=== PATIENT | male | born 1950 | race Caucasian/White ===

== ENCOUNTER → 2019-01-18 13:22 | Outpatient (CLI) | payer MEDICARE, SELFPAY ==
--- NOTE | 2019-01-18 13:27 | STEWCON_ITS ---
Reason For Study: Chest Pain; CHAPMAN Stress Results Protocol: Ernst Protocol Maximum Predicted HR: 151 bpm Target HR: 128 bpm % Maximum Predicted HR: 88 % Heart Stage Duration Rate BP Comment (mm:ss) (bpm) No Chest Pain; Technically Difficult Study; 4 ML Diluted Baseline 64 128/86Definity Given Ernst Protocol Stage I 3:00 101 138/72No Chest Pain Ernst Protocol Stage II 3:00 114 148/74No Chest Pain; Mild Dyspnea Ernst Protocol Stage III 3:00 133 178/78No Chest Pain; Mild to Moderate Dyspnea Recovery 75 138/84No Chest Pain Stress Duration: 9:00 mm:ss Maximum Stress HR: 133 bpm METS: 10 Baseline Echocardiogram Findings Stress Echo Wall motion Data Resting WM Intermediate WM Stress WM Resting Wall Motion Wall Motion Stress No regional wall motion No regional wall motion abnormalities noted. abnormalities noted. Ejection Fraction 55 %. Ejection Fraction 65 %. Interpretation Summary Exercise stress echo. 68-year-old man with a history of chest pain. Stress protocol: Resting EKG demonstrates normal sinus rhythm with a rate of 64 bpm normal intervals are noted resting blood pressures 128/80 6 m of mercury. The patient exercised according to regular Ernst protocol for total duration of 9 minutes patient completed stage III of the Ernst protocol. The maximum heart rate attained was 134 bpm which was 88% of maximum predicted heart rate the maximum workload was 10.1 metabolic equivalents. The patient maintained sinus rhythm throughout the recording. At rest there were no ST or T wave changes noted suggest ischemia. The resting blood pressures 128/86 peak blood pressure 178/78 mmHg. Stress echocardiographic images. Resting echocardiographic images performed with Definity demonstrated an ejection fraction of approximately 55%. The patient exercised according to the Ernst protocol at peak exercise stress echocardiographic images were obtained with a peak of 65% and no wall motion abnormalities noted. Conclusion: Exercise stress echocardiogram with no evidence of ischemia at a high workload. Excellent functional capacity. No arrhythmias noted. Ordering Physician: Ignacio Unger III Referring Physician: Clifton Kyle Performed By: Chayito Painter, RDCS, RVT
== END ==
PROVIDERS: Family Provider Family Medicine; PCP Family Medicine; Referring Provider Family Medicine; Visit Provider Family Medicine
DX: R06.09 Other forms of dyspnea (principal)
CPT/HCPCS: 93017; 93350; Q9957; A4216; C8928

== ENCOUNTER 2020-10-09 12:18 | Outpatient (RCR) | payer MEDICARE, SELFPAY ==
[2016-08-22 18:13] VITALS: BMI 25.1
== END 2020-10-09 23:59 ==
LOC: IMMUN 12:18
PROVIDERS: PCP Family Medicine; Visit Provider Family Medicine
DX: Z23 Encounter for immunization (principal)
CPT/HCPCS: 0011A; 0012A

== ENCOUNTER 2022-06-07 13:18 | Emergency (ER) | payer MEDICARE, SELFPAY ==
[2022-06-07 13:19] VITALS: BP 145/99; PULSE 82; RESP 16; TEMP 36.4; O2SAT 98; BMI 26.6
--- NOTE | 2022-06-07 13:55 | EKG12_ITS ---
Test Reason : LIGHTHEADNESS Blood Pressure : / mmHG Vent. Rate : 068 BPM Atrial Rate : 068 BPM P-R Int : 168 ms QRS Dur : 078 ms QT Int : 400 ms P-R-T Axes : 057 -04 031 degrees QTc Int : 425 ms Normal sinus rhythm Normal ECG Confirmed by SOFÍA CHARLES, ANDREW ([id number]), technical writer and editor CARLOS RAINES ([id number]) on 06/08/2022 9:26:26 AM Referred By: Confirmed By:ANDREW GORE MD
--- NOTE | 2022-06-07 13:55 | RAD_ITS ---
STUDY: X-RAY - LEFT WRIST REASON FOR EXAM: Male, 72 years old. Fall -- with navicular view please TECHNIQUE: 4 view(s) of the wrist were obtained. COMPARISON: None. FINDINGS: Normal visualized distal radius and ulna. Tiny old avulsion fracture of the ulnar styloid. There is degenerative arthrosis of the radiocarpal articulation. Normal distal radioulnar articulation. Normal carpal bones. There is degenerative arthrosis of the carpal articulations. Normal carpometacarpal articulation of the thumb. Normal second through fifth carpometacarpal articulations. Normal visualized metacarpal bones. The soft tissue structures are unremarkable. RAD/Wrist min 3 Views IMPRESSION: Degenerative changes of the distal radial carpal joints and carpal joints. Electronically Signed: Dyllan Snell MD at 14:59 EDT ,
--- NOTE | 2022-06-07 13:56 | EX.ED.DYSGE1 ---
HPI History of Present Illness Chief Complaint: Fall Informant: patient Onset/Context/Timing Onset: Days (5 days) Narrative Narrative: Patient tripped and fell on Friday, 5 days ago. He states since that time he has felt lightheaded. He denies vertigo symptoms. He did not have any dizziness prior to his fall. He has a mild intermittent headache. He complains of some mild right-sided neck pain as well as left wrist pain. He is not on an anticoagulant. He did not lose consciousness. He called his PCPs office today for follow-up and was referred to the emergency room. [facility] Medical History Prostate cancer Home Medications Pyridoxine Hcl [Vitamin B-6] 100 mg PO DAILY 12/01/14 [History Last Taken Unknown] Thiamine Hcl [Vitamin B-1] 100 mg PO DAILY 12/01/14 [History Last Taken Unknown] coenzyme Q10 100 mg capsule (Co Q-10) 100 mg PO DAILY 12/01/14 [History Last Taken Unknown] glucosamine HCl 500 mg-msm 83 mg-chondroitin 400 mg tablet 1 ea PO DAILY 12/01/14 [History Last Taken Unknown] pantoprazole 40 mg tablet,delayed release 40 mg PO DAILY 12/01/14 [History Last Taken 12/12/14 y] vit C 250 mg-vit E 90 mg-zinc 40 mg-copper 1 km-yaxkrm-ffesqu capsule (PreserVision AREDS-2) 1 ea PO DAILY 12/01/14 [History Last Taken Unknown] celecoxib 50 mg capsule (Celebrex) mg PO 08/22/16 [History Last Taken Unknown] doxycycline hyclate 100 mg capsule 100 mg PO BID ##20 08/22/16 [Rx Last Taken Unknown] Allergy/AdvReac Type Severity Reaction Status Date / Time No Known Allergies Allergy Verified 06/07/22 13:21 Social History Smoking Status: Never smoker ROS ROS ED Constitutional Constitutional ED: Denies chills or fever(s) Eyes Eyes: Denies change in vision or discharge from eye(s) ENT ENT ED: Denies discharge from eye(s), rhinorrhea or sore throat Cardiovascular Cardiovascular: Denies chest pain or palpitations Respiratory/Chest Respiratory/Chest: Denies cough or dyspnea Gastrointestinal Gastrointestinal: Denies abdominal pain, diarrhea, nausea or vomiting Genitourinary Genitourinary ED: Denies dysuria Musculoskeletal Musculoskeletal: Reports arthralgias and neck pain Integumentary Denies Abrasions or rash Neurologic Neurologic: Reports headache(s); Denies weakness Psychiatric Psychiatric: Denies anxiety or depression Endocrine Endocrinology: Denies polydipsia or polyuria Allergic/Immunologic Allergic/Immunologic ED: Denies lip swelling or urticaria EXAM Physical Exam Const Vital Signs: 06/07/22 13:19 06/07/22 13:38 Temperature 97.5 F L Temperature Source Temporal Pulse Rate 82 Respiratory Rate 16 Respiratory Effort Normal Blood Pressure 145/99 H Blood Pressure Mean 114 Pulse Ox 98 Oxygen Delivery Method Room Air Positive well nourished and well developed General Appearance ED: well developed HEENT Reports normocephalic and head/scalp atraumatic Eyes PERRL and EOMs intact bilaterally Neck supple Chest Wall inspection of chest normal and palpation of chest normal Resp normal respiratory effort and clear to auscultation bilaterally Cardio regular rate and regular rhythm GI normal to inspection, nondistended, normoactive bowel sounds Palpation: soft Back/Spine no CVA tenderness Back/Spine Narrative: No reproducible tenderness in the cervical, thoracic, or lumbar spine. Extremity Extremity Narrative: Mild tenderness location left wrist with good range of motion. Neuro oriented x3 and no sensory deficits noted Sensorium / Orientation: alert Motor Exam: strength 5/5 throughout Psych mental status grossly normal Skin no rashes or lesions noted MDM MDM MDM Narrative Medical decision making narrative: EKG was obtained. CT scan of the head and C-spine ordered along with left Radiography Diagnostic Testing: Clinical Impression(s) from Imaging Studies Wrist X-Ray 06/07/22 13:55 IMPRESSION: Degenerative changes of the distal radial carpal joints and carpal joints. Electronically Signed: Dyllan Snell MD at 14:59 EDT , Brain CT 06/07/22 14:15 IMPRESSION: Normal unenhanced CT scan of the brain. Electronically Signed: Dyllan Snell MD at 14:31 EDT , Cervical Spine CT 06/07/22 14:15 IMPRESSION: Multilevel degenerative changes, as described above. Electronically Signed: Dyllan Snell MD at 14:30 EDT , EKG Initial EKG: Attestation: I personally reviewed and interpreted this EKG as follows: Interpretation: Sinus Rhythm (Sinus at 68 with no acute ischemia.) Treatment and Re-Evaluation Narrative: On repeat evaluation patient resting comfortably. CT scan of the head and C-spine revealed no acute abnormalities. Left wrist x-ray per my interpretation reveal significant arthritic changes with no acute fracture. Radiology interpretation is reviewed. EKG reveals no ischemia or arrhythmia. I do believe his symptoms are consistent with a mild concussion as this all started after he fell and struck his head. There is no evidence of bleeding or swelling. Instructions will be provided for home care as well as return. Discharge Plan Triage Chief Complaint: Fall ED Provider: Roxanne Goodson Dx/Rx/DC Orders Clinical Impression: Concussion Instructions: ED Concussion Prescriptions: No Action pantoprazole 40 MG tablet 40 mg PO DAILY Label Comments: decrease stomach acid coenzyme Q10 [Co Q-10] 100 MG capsule 100 mg PO DAILY Label Comments: supplement glucosamine GZr-kom-ikkwzwwrcq 1 EACH tablet 1 ea PO DAILY Label Comments: supplement vit C,A-Zr-oczqw-lutein-zeaxan [PreserVision AREDS-2] 1 EACH capsule 1 ea PO DAILY Label Comments: supplement Pyridoxine Hcl [Vitamin B-6] 100 MG tablet 100 mg PO DAILY Label Comments: supplement Thiamine Hcl [Vitamin B-1] 250 MG tablet 100 mg PO DAILY Label Comments: supplement celecoxib [Celebrex] 50 MG capsule PO doxycycline hyclate 100 MG capsule 100 mg PO BID Qty: 20 0RF Primary Care Provider: Tatum Perry Referrals: Tatum Perry MD [Primary Care Provider] - 1-2 Weeks Disposition Disposition: Home, Self Care
--- NOTE | 2022-06-07 14:15 | CT_ITS ---
STUDY: CT CERVICAL SPINE WITHOUT CONTRAST REASON FOR EXAM: Male, 72 years old. Neck pain following a fall. RADIATION DOSAGE (If Supplied By Facility): CTDIvol = ( 24.22 ) mGy, DLP = ( 515.57 ) mGycm TECHNIQUE: High resolution transaxial imaging was performed without contrast material. Sagittal and coronal images were reconstructed. Individualized dose optimization techniques were used for this CT. COMPARISON: None FINDINGS: Normal craniovertebral junction. There are degenerative changes of the anterior atlantoaxial articulation. Normal odontoid process. Normal cervical lordosis. Normal vertebral bodies and posterior osseous elements. C2-3: Moderate degree of disc space narrowing. Posterior spondylosis. Mild degree of central canal stenosis. C3-4: Marked degree of disc space narrowing. Moderate degree of bilateral neural foraminal stenosis worse on the left side and facet joint osteoarthritis. C4-5: Mild degree of disc space narrowing. Hypertrophy of the right facet joint. No significant stenosis seen. C5-6: Moderate degree of disc space narrowing. Mild degree of central canal stenosis due to the spondylolisthesis. C6-7: Marked degree of disc space narrowing. Bilateral neural foraminal stenosis worse on the left side. Mild degree of central canal stenosis. C7-T1: Normal endplates. Normal disc height and morphology. Normal central canal and intervertebral neuroforamina. Normal visualized soft tissue structures. CT/Spine Cervical without Contras IMPRESSION: Multilevel degenerative changes, as described above. Electronically Signed: Dyllan Snell MD at 14:30 EDT ,
--- NOTE | 2022-06-07 14:15 | CT_ITS ---
STUDY: CT BRAIN WITHOUT CONTRAST REASON FOR EXAM: Male, 72 years old. Fall, dizzy RADIATION DOSAGE (If Supplied By Facility): CTDIvol = ( 44.99 ) mGy, DLP = ( 812.98 ) mGycm TECHNIQUE: Transaxial CT imaging of the brain was performed without administration of intravenous contrast material. Individualized dose optimization techniques were used for this CT. COMPARISON: Comparison is made with prior study dated 2016. FINDINGS: Normal soft tissue structures. Normal calvarium. Normal size ventricles and extra-axial spaces for the patient''s age. Normal white matter tracts of the cerebral hemispheres. Normal basal ganglia and thalami. Normal brainstem. Normal cerebellum. There is no intracranial hemorrhage. There are no findings of an acute ischemic infarction. Normal visualized paranasal sinuses. Healed fracture with mild deformity of the left zygomatic arch. CT/Brain/Head without Contrast IMPRESSION: Normal unenhanced CT scan of the brain. Electronically Signed: Dyllan Snell MD at 14:31 EDT ,
[2022-06-07 15:23] VITALS: BP 144/81; PULSE 68; RESP 16; O2SAT 98
== END 2022-06-07 15:28 | disposition home or self-care (01) ==
PROVIDERS: Emergency Provider Emergency Medicine; PCP Internal Medicine; Visit Provider Emergency Medicine
DX: S06.0X0A Concussion without loss of consciousness, initial encounter (principal); W01.0XXA Fall on same level from slipping, tripping and stumbling without subsequent striking against object, initial encounter; Z85.46 Personal history of malignant neoplasm of prostate
CPT/HCPCS: 70450; 72125; 73110; 93005; 99282

== ENCOUNTER → 2022-08-06 | Outpatient (CLI) | payer MEDICARE, SELFPAY ==
--- NOTE | 2022-08-06 07:50 | CT_ITS ---
PROCEDURE: CT LEFT KNEE WITHOUT CONTRAST REASON FOR EXAM: Male, 72 years old. Preoperative planning for the [employer] Robotic knee surgery. Knee pain. TECHNIQUE: Transaxial CT of the hip, knee and ankle were obtained. Coronal and sagittal reconstruction images of the knee were provided. Individualized dose optimization techniques were used for this CT. COMPARISON: None. FINDINGS: Standard protocol for the preoperative planning for the M[employer] robotic knee surgery was performed. There is mild to moderate osteoarthrosis of the hip and knee. CT/Extremity Lower without Contra IMPRESSION: Preoperative Mako[employer] Robotic knee surgical CT evaluation with findings as described above. Electronically Signed: Will Holcomb, at 9:37 EST ,
== END | disposition home or self-care (01) ==
PROVIDERS: PCP Internal Medicine; Referring Provider Orthopaedic Surgery; Visit Provider Orthopaedic Surgery
DX: M17.12 Unilateral primary osteoarthritis, left knee (principal)
CPT/HCPCS: 73700

== ENCOUNTER 2022-08-26 16:02 | Observation (INO) | payer MEDICARE, SELFPAY ==
[2022-08-06 08:31] LABS: Hematocrit 43.6 % (40-54); Hemoglobin 15.2 g/dL (13.0-16.5); Mean Corp Hgb Conc 34.9 g/dL (32-36); Mean Corpuscular Hgb 32.2 pg (27.0-32.0); Mean Corpuscular Volume 92.4 fL (80-94); Mean Platelet Vol. 8.9 fl (6.2-12.0); Platelet Count 266 K/mm3 (150-450); RBC Distribution Width CV 11.9 % (11.6-14.6); RBC Distribution Width SD 40.9 fl (35.1-43.9); Red Blood Count 4.72 M/mm3 (4.6-6.2)
[2022-08-06 08:43] LABS: Albumin, Serum 4.1 g/dL (3.2-5.0); Anion Gap 5 (5-15); BUN 24 mg/dL (7-18); BUN/Creat Ratio 23.3 RATIO (10-20); Calcium,Total 9.3 mg/dL (8.5-10.1); Chloride 105 mmol/L (98-107); Creatinine, Serum 1.03 mg/dL (0.70-1.30); EST Glomerular Filtration Rate 75 mL/min (>60); Est Glom Filt Rate - Afr Amer 91 mL/min (>60); Glucose 113 mg/dL (74-106); Potassium 4.3 mmol/L (3.5-5.1); Sodium Level 139 mmol/L (136-145)
[2022-08-06 08:45] LABS: Magnesium 2.3 mg/dL (1.6-2.6)
[2022-08-06 08:52] LABS: Hemoglobin A1c 5.7 % (3.8-5.6)
[2022-08-26] VITALS (14 sets, daily range): BP systolic 106–149; BP diastolic 63–97; PULSE 69–88; RESP 14–18; TEMP 36.4–37; O2SAT 94–99; BMI 26.5
[2022-08-26] MEDS: Lactated Ringers 1,000 ML 15 ML IV (11:45)
[2022-08-26] MEDS: Acetaminophen 500 MG Tablet 1000 MG PO ×2 (12:06→19:48)
[2022-08-26] MEDS: Gabapentin 600 MG Tablet PO (12:07)
[2022-08-26 13:25] LABS: Bedside Glucose 88 mg/dL (74-106)
--- NOTE | 2022-08-26 13:30 | KNEE_PTH ---
PATIENT: COREEN HAM LOC: [facility] U#:[id number] AGE/SX: 72/M ROOM: [facility]314 RE08/26/[address]: Dr. Daljit Mcwilliams DO : 1950 BED: 1 DIS: 08/27/2022 SPEC #: [id number] RECD: 08/27/22 09:59 STATUS: JAIR REGlen #: [id number] SAMY: 08/26/22 13:[address]: Daljit Mcwilliams DEPT: SURGICAL PATHOLOGY RECD BY: Mary Lou Morton ENTERED: 08/27/22 10:34 SP TYPE: TOTAL KNEE OTHR DR: Tatum Perry MD Tissues: Knee, NOS Procedures: Decalcification bone/plaque Surgery Specimen Level IV HEADER OPERATION: ERAS, total knee replacement robotic arm assist PRE-OP DIAGNOSIS: Osteoarthritis TISSUE SUBMITTED: Left knee bone MICROSCOPIC DIAGNOSIS Bone of left knee, total knee resection: Severe degenerative joint disease. AM:romario 08/30/2022 MICROSCOPIC DESCRIPTION Slides are reviewed. GROSS DESCRIPTION Received is one container designated bone left knee. The specimen consists of multiple fragments of catherine-yellow bone measuring in aggregate 10 x 10 x 3 cm. No soft tissue is identified. A number of bony fragments contain articular surfaces consistent with tibial plateau and femoral condyle and displaying prominent osteophyte formation, eburnation, and bone erosion. Club Director sections are submitted in one cassette after decalcification. / SJ:romario 08/27/2022 TC:5 CPT: 48802, 77932
[2022-08-26] MEDS: Cefazolin 2 GM in 0.9% Normal Saline 100 ML IV (13:50)
[2022-08-26] MEDS: TXA 1000mg in NS100 100ml (IVPB at Closure) 660 MG IV (14:05)
[2022-08-26] MEDS: TXA 1000mg in NS100 100ml (IVPB at Incision) 660 MG IV (14:57)
--- NOTE | 2022-08-26 15:13 | PCM.OPRPT ---
Report of Operation Date of Procedure: 08/26/22 Pre-Operative Diagnosis: OA Left knee Post-Operative Diagnosis: same Surgery/Procedure Performed:: Left TKR Description of Surgical Findings:: Report of Operation Date of Procedure: 08/26/2022 Preoperative Diagnosis: [Left ] knee primary osteoarthritis Postoperative Diagnosis: [ Left ] knee primary osteoarthritis Operation: Robotic Assisted Knee Total Arthroplasty, [Left ] knee Surgeon: Dr Daljit Mcwilliams DO Place Change Roof Bolter: Will Gonzáles PA-C Anesthesia: spinal Anesthesiologist: Rl Bardales M.D. Findings: Stable knee with good patella tracking Specimen(s): Bony cuts Complications: No intraoperative complications Estimated Blood Loss: 20 cc IV Fluids: 1000 cc crystalloid Implants Used: 1. [employer] press-fit CR size 5 femur 2. [employer] size 6 tibia 3. 35 mm patella 4. 9 mm CS polyethylene Brief History Operative Indications: [ (72 y/o male) ] with history of [left ] knee osteoarthrosis with radiographic findings with loss of joint space, osteophyte formation and subchondral sclerosis. Failed conservative measures as mentioned in the H&P. Discussion of total knee arthroplasty as well as risk and benefits were discussed with the patient including but not limited to blood loss, DVTs, PEs, neurovascular damage, general risk of anesthesia including loss of life, and stiffness or instability were also discussed with the patient. Patient demonstrated understanding and was able to sign informed consent. Procedure: On the date of procedure, patient's [left ] lower extremity was marked in the preoperative area. The patient was then taken back to the operating room where that patient was placed on the table in the supine position. All bony prominences were identified and well-padded. Anesthesia assumed control of the C-spine and airway throughout the remainder of the procedure. A tourniquet was placed on the [left ] upper thigh and the leg was prepped in a sterile fashion. The surgeon then scrubbed at this time. Upon reentering the room, the [left ] lower extremity was draped in a standard orthopedic fashion. A timeout was then called and everyone agreed upon the side, the site, the procedure to be performed, patient's identity and antibiotics given. Esmarch bandage was used to exsanguinate the extremity and the tourniquet was placed up to 250 mmHg with the knee in flexion. A midline skin incision was made and a sharp dissection was taken down through skin, subcutaneous tissue and fat. The standard medial parapatellar incision was made and the patella was subluxed laterally. An appropriate deep MCL release was done and the fat pad was resected. Our attention was then directed to the patella. The patella was everted and a flat resection was made. The knee was then flexed up and 2 femoral pins were placed inside the incision and 2 tibial pins were placed outside the incision in the medial tibia bicortically. Once this was completed, the 2 checkpoints in the femur and tibia were placed. Knee was then flexed up and the bony landmarks were registered. Once the was completed, the knee taken through range of motion and manually stressed allowing us to plan for an appropriate tibial cut. The robotic arm was brought into the field sterilely and checkpoint and saw were registered. Based on the patient's deformity, the tibial cut was made in [2 degrees varus ]. At this time, the tensioner was then placed in the joint and ligament tension was checked at 90 degrees and full extension. Based on the patient's ligamentous tension, appropriate adjustments were made to the operative plan and ligament releases were done. Once we were happy with our operative plan with balanced flexion and extension gaps, our attention was directed to the femur. The robot was brought into the field sterilely and registered. Posterior condylar cuts, anterior chamfer cuts and anterior cuts were appropriately made for a [size 5 ] femur. When these were completed, the saws were switched out in the distal femoral and posterior chamfer cuts were made. Protecting the soft tissue throughout this time. A [ size 6 ] base plate was selected. The knee was flexed to 90 degrees and soft tissues and posterior osteophytes were removed from the joint. 40 cc of the periarticular injection was injected into the posterior medial corner of the joint. The appropriate trials were then placed on the femur and tibia. A trial polyethylene was trialed to ensure proper balancing and stability of the knee. The appropriate tibial internal rotation was then marked with a bovie. Our attention was then directed to the patella. The lug holes were drilled and the patella trial was placed. Patellar tracking was checked and deemed appropriate. Once we were happy, lug holes were drilled for the femur and trial components were removed. The tibia was subluxed and pinned into place and the keel was punched and drilled appropriately. Final components were verified and opened. The wound was copiously irrigated with normal saline. The components were impacted into place with the tibia, femur and finally the patella. The trial poly component was placed and the knee was placed in full extension. The tracking, alignment and balance were verified and a [ 9 mm CS ] polyethylene component was placed. Once the final components were placed an Irrisept lavage was performed and the wound was copiously irrigated with normal saline solution and the periarticular injection was given. the wound was closed in a layer-duncan fashion using #1 vicryl interrupted sutures for the arthrotomy, 2-0 interrupted vicryl suture for the subcuticular layer and maxine for final skin closure. A sterile compressive dressing was then placed. The patient was then awakened from anesthesia, transferred to the rlabadie and transferred to the PACU for recovery. My physician kindergarten instructional assistant was a vital part of this case. He was important in appropriate retraction during the case, and protection of soft tissues during bony cuts. His intimate knowledge of the case and my steps aided in safe and expedient completion of the procedure as well as appropriate position of the leg during the case. He was also vital in assisting with closure under my direct supervision. Due to the complexity of this case, robotic arm was used to assist in the surgery to improve accuracy and clinical outcomes. Post-op Plan: DVT ppx; ASA 81 mg BID, thigh high compression stockings Follow up: in office in 2 weeks for wound check PT: to start POD #0 at hospital, outpatient PT should be arranged. Preoperative antibiotic: Ancef 2 grams IV Daljit Mcwilliams DO Surgeon: Daljit Mcwilliams fire engine pump operator: Will Gonzáles Type of Anesthesia: Spinal Anesthesiologist: Rl Bardales Specimen's removed: bone Estimated Blood Loss (mL): 20 cc Fluids Replaced: 1000 cc crystalloid Admit VTE Documentation VTE Present on Admission: No VTE Mechan Device Prophylaxis: SCD's and Thigh High MARIELLE Hose VTE Pharm Prophylaxis ordered?: Yes
[2022-08-26] MEDS: Lactated Ringers 1,000 ML 999 ML IV (15:35)
--- NOTE | 2022-08-26 15:55 | RAD_ITS ---
INDICATION: post op -- AP and Lateral x-ray of operative knee in PACU EXAMINATION/TECHNIQUE: X-RAY - LEFT XR Knee 1 or 2 Views 2 VIEWS COMPARISON: 08/06/2022 CT RAD/Knee 1 or 2 Views IMPRESSION: Left TKA and patellar resurfacing in near-anatomic alignment. Expected associated soft tissue gas. Electronically Signed: Pola Cody MD at 16:12 EST ,
[2022-08-26] MEDS: Lactated Ringers 1,000 ML 125 ML IV (16:20)
[2022-08-26] MEDS: Aspirin 81 MG TAB.CHEW PO (18:21)
[2022-08-26] MEDS: Senna/Docusate Sodium 1 Tablet 2 TABLET PO (19:48)
[2022-08-26] MEDS: oxyCODONE 5 MG Tablet PO ×2 (19:48→22:29)
[2022-08-26] MEDS: Cefazolin 1 GM/50 ML BAG IV (19:49)
[2022-08-27 01:45] VITALS: BP 141/75; PULSE 79; RESP 16; TEMP 36.6; O2SAT 94
[2022-08-27] MEDS: oxyCODONE 5 MG Tablet PO ×4 (03:58→13:44)
[2022-08-27] MEDS: Cefazolin 1 GM/50 ML BAG IV (05:29)
[2022-08-27] MEDS: Acetaminophen 500 MG Tablet 1000 MG PO ×2 (05:31→13:46)
[2022-08-27 05:35] VITALS: BP 136/76; PULSE 70; RESP 16; TEMP 36.6; O2SAT 96
[2022-08-27 05:54] LABS: Mean Corp Hgb Conc 35.3 g/dL (32-36); Mean Corpuscular Hgb 32.6 pg (27.0-32.0); Mean Corpuscular Volume 92.4 fL (80-94); Mean Platelet Vol. 9.2 fl (6.2-12.0); Platelet Count 244 K/mm3 (150-450); RBC Distribution Width CV 11.7 % (11.6-14.6); RBC Distribution Width SD 39.7 fl (35.1-43.9); Red Blood Count 3.68 M/mm3 (4.6-6.2); White Blood Count 12.1 K/mm3 (4.4-11.0)
[2022-08-27 06:38] LABS: Anion Gap 8 (5-15); BUN 10 mg/dL (7-18); BUN/Creat Ratio 12.6 RATIO (10-20); Calcium,Total 8.6 mg/dL (8.5-10.1); Chloride 107 mmol/L (98-107); EST Glomerular Filtration Rate 101 mL/min (>60); Est Glom Filt Rate - Afr Amer 123 mL/min (>60); Estimated Creatinine Clearance 76.89 ml/min; Glucose 117 mg/dL (74-106); Potassium 4.2 mmol/L (3.5-5.1); Sodium Level 141 mmol/L (136-145)
--- NOTE | 2022-08-27 07:41 | PCM.PN.ORT ---
Subjective Subjective Patient lying in bed awake. Patient states pain has been very well managed. Patient denies chest pain, shortness of breath, calf pain, nausea vomiting. Patient states he is ready for discharge home. He reports he will be doing outpatient physical therapy at [facility] [place]. Objective Data Objective Data Vital Signs: Vital Signs Temp Pulse Resp BP Pulse Ox O2 Del Method O2 Flow Rate 97.8 F 70 16 136/76 H 96 Room Air 4 08/27/22 05:35 08/27/22 05:35 08/27/22 05:35 08/27/22 05:35 08/27/22 05:35 08/27/22 05:35 08/26/22 18:54 Oxygen Flow Rate (L/min) 4 Oxygen Delivery Method Room Air Weight: 78 kg Body Mass Index (BMI) 26.5 Intake & Output: Intake and Output for Last 24 Hours 08/25/22 08/26/22 08/27/22 23:59 23:59 23:59 Intake Total 2282 / 2282 1450 / 1450 Balance 2282 / 2282 1450 / 1450 Lab / Micro Data Result Diagrams: 08/27/22 04:51 08/27/22 04:51 Labs: Laboratory Results - last 24 hr 08/26/22 11:50: POC Glucose 88 08/27/22 04:51: WBC 12.1 H, RBC 3.68 L, Hgb 12.0 L, Hct 34.0 L, MCV 92.4, MCH 32.6 H, MCHC 35.3, RDW Std Deviation 39.7, RDW Coeff of Nicol 11.7, Plt Count 244, MPV 9.2 08/27/22 04:51: Sodium 141, Potassium 4.2, Chloride 107, Carbon Dioxide 26.0, Anion Gap 8, BUN 10, Creatinine 0.80, Estim Creat Clear Calc 76.89, Est GFR (MDRD) Af Amer 123, Est GFR (MDRD) Non-Af 101, BUN/Creatinine Ratio 12.6, Glucose 117 H, Calcium 8.6 Micro: Microbiology 08/06/22 07:49 Swab (Method) Nasal Screen MRSA/MSSA - Final Radiography Diagnostic Testing: Radiology Impression Knee X-Ray 08/26/22 15:55 IMPRESSION: Left TKA and patellar resurfacing in near-anatomic alignment. Expected associated soft tissue gas. Electronically Signed: Pola Cody MD at 16:12 EST , Physical Exam Narrative Exam I found patient lying in bed awake. He was in no respiratory distress speaking in full sentences. Patient moving upper extremities without limitations. Good motion of bilateral hips right knee and ankle. Left knee the dressing was clean dry intact. No calf tenderness. Const alert and oriented x3 General Appearance: cooperative HEENT normocephalic Eyes PERRL Resp normal respiratory effort Effort and Inspection: able to speak in complete sentences Extremity normal capillary refill Skin no rashes or lesions noted Neuro CN's II-XII intact bilaterally Psych mental status grossly normal and affect normal Assessment & Plan Assessment/Plan (1) Status post total left knee replacement not using cement: PLAN: 1. Continue all pain medications as prescribed 2. Aspirin 81 mg 1 p.o. every 12 hours x30 days for postop DVT prophylaxis 3. Encourage incentive spirometry 4. Continue physical therapy today weight-bear as tolerated with walker 5. Discharge home today after p.m. therapy 6. Follow-up as scheduled, see pink sheet
--- NOTE | 2022-08-27 07:45 | DCINST_ITS ---
Discharge Instructions Diet Discharge Diet: No restrictions Activity Discharge Activity: May Not Drive, May Shower and Use Walker May shower in (days): 3 May resume sexual activity in: No Restrictions Ice area for (Minutes): 30 Weight Bearing Status: Weight bearing as tolerated Keep extremity elevated above heart level: Operative Extremity Dressing / Incision Call your doctor if your incision/area has: Continuous Slow Oozing, Sudden Increased Bleeding, Increased Pain/ Swelling, Increased Redness, Foul Smelling Discharge and Swelling at the incision site Call your doctor if you observe: Fever of 101 or Higher, Inability to urinate, Shortness of breath, Chest pain and Calf discomfort Suture Line Care: Avoid Pulling/Pushing Change Dressing in: leave in place till F/U Remove Dressing in: leave in place till F/U Follow Up Care Please Follow Up With: Will Gonzáles PA-C When: As scheduled Test Results: Test results from this visit will be discussed in further detail at your follow- up appointment, if applicable. Discharge Plan Admission Admit Date/Time: 08/26/22 16:02 Primary Reason for Your Visit: Left total knee arthroplasty Attending Provider: Daljit Mcwilliams Primary Care Provider: Tatum Perry Discharge Orders/Prescriptions Prescriptions: New acetaminophen 500 mg Tablet 1,000 mg PO Q8 30 Days Qty: 180 0RF aspirin 81 mg Tablet,Chewable 81 mg PO BIDCM 30 Days Qty: 60 0RF oxycodone 5 mg Tablet 5 - 10 mg PO Q4H PRN PRN (Reason: Pain Score 4-10) 7 Days Qty: 60 0RF sennosides-docusate sodium [Stool Softener-Stimulant Laxat] 8.6-50 mg Tablet 2 tab PO BID PRN (Reason: constipation) 4 Days Qty: 16 0RF Continued pantoprazole 40 MG tablet 40 mg PO DAILY Label Comments: decrease stomach acid coenzyme Q10 [Co Q-10] 100 MG capsule 100 mg PO DAILY Label Comments: supplement glucosamine [id number]-[id number] 1 EACH tablet 1 ea PO DAILY Label Comments: supplement PreserVision AREDS-2 1 EACH capsule 1 ea PO DAILY Label Comments: supplement multivitamin Tablet 1 tab PO DAILY celecoxib 200 mg capsule 200 mg PO DAILY ascorbic acid (vitamin C) [Vitamin C] 500 mg Tablet 500 mg PO DAILY Discontinued acetaminophen 500 mg Tablet 500 mg PO Q6H PRN (Reason: Pain) Referrals / Follow Up: Tatum Perry MD [Primary Care Provider] - Disposition Disposition (needs filled in before D/C Order can be placed): Home, Self Care
[2022-08-27 07:55] VITALS: O2SAT 91
[2022-08-27 08:35] VITALS: BP 137/72; PULSE 70; RESP 15; TEMP 36.9; O2SAT 94
[2022-08-27] MEDS: Multivitamins,Therapeutic Tablet 1 TABLET PO (08:38)
[2022-08-27] MEDS: Pantoprazole Sodium 40 MG Tablet PO (08:38)
[2022-08-27] MEDS: Multivitamin (Healthy Eyes) Capsule 1 CAP PO (08:38)
[2022-08-27] MEDS: Aspirin 81 MG TAB.CHEW PO (08:38)
[2022-08-27] MEDS: Ascorbic Acid 500 MG Tablet PO (08:39)
[2022-08-27] MEDS: Senna/Docusate Sodium 1 Tablet 2 TABLET PO (08:39)
--- NOTE | 2022-08-27 09:30 | CASEMGMT ---
JOELLEN ANNA Assessment: Face to Face with pt for initial transition planning/care coordination assessment. JOELLEN ANNA introduced self and role at [facility], pt voices understanding and consents to assessment. Pt is A/O x4 and answers all questions appropriately at this time. Pt sitting up in chair eating breakfast in no distress. Care providers, pharmacy, and demographics verified/updated. Admitting Dx: L TKR PCP:[place] Specialists:rafi Mcwilliams; Gordon, elizabeth Preferred Pharmacy: [facility] Retail Insurance: [facility] Prescription Benefit: yes LNOK: Karolina Hernández, Living Arrangements: Pt lives with in a 3 story home with 3 steps to enter with a rail. Pt reports he is I in ADL's and denies concerns at home. Transportation: Pt drives self and denies concerns with transportation. Pt will transport pt until he can drive again. DME/HHC/SNF: Pt has a standard walker, FWW, w/c, shower bench and other DME from parents. Pt has had HHC in the past but is unsure of the name of the agency. Pt denies SNF stays. Pt states no concerns with going home at time of dc. He has outpt therapy set up at [facility] on Friday. Pt states no further concerns/needs. CM to follow. Advised pt to ask CM if any further question/concerns/needs arise, voices understanding. Pt Goal: Home with outpt therapy set up Plan: Home with outpt therapy set up
--- NOTE | 2022-08-27 10:34 | PHA.DC.MC ---
Pharmacy Service has performed discharge medication reconciliation and counseling for this patient. 1. ASPIRIN 81MG PO BIDCM X 30 DAYS 2. OXYCODONE 5-10MG PO Q4H PRN PAIN 4-10 3. SENNA/DOCUSATE 2T PO BID PRN CONSTIPATION The patient's discharge medication list was reviewed for discrepancies and discrepancies were resolved. Home Medications coenzyme Q10 100 mg capsule (Co Q-10) 100 mg PO DAILY 12/01/14 glucosamine HCl 500 mg-msm 83 mg-chondroitin 400 mg tablet 1 ea PO DAILY 12/01/14 pantoprazole 40 mg tablet,delayed release 40 mg PO DAILY 12/01/14 vit C 250 mg-vit E 90 mg-zinc 40 mg-copper 1 [id number] capsule (PreserVision AREDS-2) 1 ea PO DAILY 12/01/14 ascorbic acid (vitamin C) 500 mg tablet (Vitamin C) 500 mg PO DAILY 08/02/22 celecoxib 200 mg capsule 200 mg PO DAILY 08/02/22 multivitamin 1 tab PO DAILY 08/02/22 acetaminophen 500 mg tablet 1,000 mg PO Q8 Pain 30 days #180 tabs 08/27/22 aspirin 81 mg chewable tablet 81 mg PO BIDCM Postop DVT prophylaxis 30 days #60 tabs 08/27/22 oxycodone 5 mg tablet 5 - 10 mg PO Q4H PRN PRN Pain Score 4-10 7 days #60 tabs 08/27/22 sennosides 8.6 mg-docusate sodium 50 mg tablet (Stool Softener-Stimulant Laxative) 2 tab PO BID PRN constipation 4 days #16 tabs 08/27/22 The patient was counseled on the following discharge medications and changes in medications for homegoing were reviewed. The Reason for Use, instructions for use, and potential side effects were reviewed for all new medications. The patient's questions regarding all of their medications were answered. The patient was able to verbally demonstrate an understanding of their discharge medications.
[2022-08-27 12:00] VITALS: BP 108/59; PULSE 71; RESP 14; TEMP 36.6; O2SAT 95
== END 2022-08-27 14:18 | disposition home or self-care (01) ==
LOC: MS3 08-27 07:23 → SDC 08-27 09:50
PROVIDERS: Anesthesiology; Admitting Provider Orthopaedic Surgery; PCP Internal Medicine; Referring Provider Orthopaedic Surgery; Visit Provider Orthopaedic Surgery
PROC: 0SRD0JZ Replacement of Left Knee Joint with Synthetic Substitute, Open Approach (ICD-10-PCS; CPT 27447; principal; 2022-08-26 13:00)
DX: M17.12 Unilateral primary osteoarthritis, left knee (principal); G40.909 Epilepsy, unspecified, not intractable, without status epilepticus; Z79.899 Other long term (current) drug therapy; R03.0 Elevated blood-pressure reading, without diagnosis of hypertension; K21.9 Gastro-esophageal reflux disease without esophagitis; R06.02 Shortness of breath
CPT/HCPCS: 27447; S2900; 01402; 64447; 36415; 73560; 80048; 82040; 82962; 83036; 83735; 85027; 87081; 88305; 88311; 96361; 96365; 96366; 97110; 97116; 97162; 97166; 97530; 99221; C1776; J7120; G0378; J2405; J3475

== ENCOUNTER 2022-11-14 05:28 | Emergency (ER) | payer MEDICARE, SELFPAY ==
[2022-11-14 05:29] VITALS: BP 180/78; PULSE 72; RESP 18; TEMP 36.8; O2SAT 98; BMI 27.7
--- NOTE | 2022-11-14 05:40 | RAD_ITS ---
INDICATION: fall EXAMINATION/TECHNIQUE: X-RAY - LEFT XR Wrist Min 3 Views 4 VIEWS COMPARISON: None. FINDINGS: SOFT TISSUES: Diffuse wrist edema.. No radiopaque foreign body. BONES/JOINTS: Fracture lucency through the radial styloid on ulnar deviation view only.. No dislocation. Diffuse radiocarpal space, mid carpal row, and carpometacarpal joint space loss with osteophyte formation. No aggressive osseous lesion. RAD/Wrist min 3 Views IMPRESSION: Findings concerning for nondisplaced radial styloid fracture.. Diffuse osteoarthritis. Electronically Signed: Kelvin Verdugo MD at 7:23 EDT ,
--- NOTE | 2022-11-14 05:40 | RAD_ITS ---
INDICATION: fall EXAMINATION/TECHNIQUE: X-RAY - LEFT XR Shoulder Min 2 Views 4 VIEWS COMPARISON: None. FINDINGS: SOFT TISSUES: Edema superficial to the mid clavicle.. No radiopaque foreign body. BONES/JOINTS: Mid clavicle fracture with mild apex cephalad angulation. Normal acromioclavicular and glenohumeral alignment.. No aggressive osseous lesion. Greater tuberosity subchondral cystic change... RAD/Shoulder min 2 Views IMPRESSION: Mid clavicle fracture. Electronically Signed: Kelvin Verdugo MD at 7:15 EDT ,
--- NOTE | 2022-11-14 05:40 | RAD_ITS ---
INDICATION: fall EXAMINATION/TECHNIQUE: X-RAY - LEFT XR Elbow Min 3 Views COMPARISON: None. FINDINGS: SOFT TISSUES: Mild posterior olecranon soft tissue edema.. No radiopaque foreign body. BONES/JOINTS: There is no displacement of the anterior or posterior fat pads. No acute fracture or subluxation. Normal alignment. Preservation of the joint space. No sclerotic or destructive changes observed. RAD/Elbow min 3 Views IMPRESSION: Posterior olecranon edema compatible with contusion or bursitis. No acute osseous finding Electronically Signed: Kelvin Verdugo MD at 7:18 EDT ,
--- NOTE | 2022-11-14 05:40 | RAD_ITS ---
INDICATION: fall EXAMINATION/TECHNIQUE: X-RAY - XR Hip Unilateral with Pelvis when performed; 2-3 Views: AP pelvis with AP and frog-leg left hip COMPARISON: None. FINDINGS: PELVIC BONES: No displaced fracture, destructive or sclerotic lesions. Note that overlapping bowel shadows may however obscure fine detail. Sacroiliac joints are unremarkable. No widening of the pubic symphysis. Mild irregular joint degenerative change. Moderate lumbar spondylosis. HIPS: Normal bilateral hip alignment. Moderate right and mild left hip joint space narrowing with osteophyte formation and acetabular subchondral cystic change. Irregular osseous proliferation or overlap along the right femoral neck. Thin linear sclerosis at the left femoral head neck junction without discrete lucent fracture line or gross cortical step-off. SOFT TISSUES: No soft tissue swelling or gas. Pelvic atherosclerosis. RAD/HIP, UNI W/ Pelvis 2-3 Views IMPRESSION: Osseous overlap at the left femoral head neck junction and the right mid femoral neck is nonspecific and may represent sequela of prior injury and overlapping osteophyte formation. Nondisplaced fracture is difficult to exclude, particularly on the right. Consider CT. Electronically Signed: Kelvin Verdugo MD at 7:29 EDT ,
--- NOTE | 2022-11-14 05:40 | RAD_ITS ---
INDICATION: fall EXAMINATION/TECHNIQUE: X-RAY - LEFT XR Knee Complete 4 Views or More 4 VIEWS COMPARISON: August 26, 2022. FINDINGS: SOFT TISSUES: Diffuse anterior knee edema. Small knee joint effusion suggested. No radiopaque foreign body. BONES/JOINTS: Total knee arthroplasty with patellar resurfacing. No acute fracture or evidence of hardware failure.. Normal alignment. No aggressive osseous lesion. RAD/Knee 4 or More Views IMPRESSION: Nonspecific anterior knee soft tissue edema. Total knee arthroplasty with small joint effusion. No evidence of hardware failure or fracture.. Electronically Signed: Kelvin Verdugo MD at 7:30 EDT ,
--- NOTE | 2022-11-14 05:56 | RAD_ITS ---
INDICATION: injury EXAMINATION/TECHNIQUE: X-RAY - LEFT XR Foot Min 3 Views 3 VIEWS COMPARISON: None. FINDINGS: SOFT TISSUES: No soft tissue swelling or gas. No radiopaque foreign body. Peripheral atherosclerosis BONES/JOINTS: No acute fracture or dislocation.. First tarsal metatarsal joint and metatarsophalangeal joint moderate to severe osteoarthritis .. No sclerotic or destructive changes observed. RAD/Foot min 3 Views IMPRESSION: No acute osseous finding.. Electronically Signed: Kelvin Verdugo MD at 7:36 EDT ,
--- NOTE | 2022-11-14 07:09 | EDS_ITS ---
HPI HPI - Fall History of Present Illness Chief Complaint: Fall Informant: patient Occured/Mechanism Occurred: Yesterday Narrative Narrative: Patient presents after a fall yesterday. He states he fell yesterday landing on his left side. He does not believe he struck his head. There was no loss of consciousness. He is not on anticoagulants. He states earlier this morning he noted increased pain so he came in for evaluation. He is complaining of pain to his left side. PFSH PFSH Medical History Alcohol use Arthritis Back pain Gastric reflux History of pain when walking Injury of head and neck Non-smoker Normal stress echocardiogram Prostate cancer Seizures Shortness of breath on exertion Wears glasses Wears hearing aid Home Medications coenzyme Q10 100 mg capsule (Co Q-10) 100 mg PO DAILY 12/01/14 [History Last Taken 08/21/22] glucosamine HCl 500 mg-msm 83 mg-chondroitin 400 mg tablet 1 ea PO DAILY 12/01/14 [History Last Taken 08/21/22] pantoprazole 40 mg tablet,delayed release 40 mg PO DAILY 12/01/14 [History Last Taken 08/26/22] vit C 250 mg-vit E 90 mg-zinc 40 mg-copper 1 [id number]-rlpikp-jmydab capsule (PreserVision AREDS-2) 1 ea PO DAILY 12/01/14 [History Last Taken 08/21/22] ascorbic acid (vitamin C) 500 mg tablet (Vitamin C) 500 mg PO DAILY 08/02/22 [History Last Taken 08/21/22] multivitamin 1 tab PO DAILY 08/02/22 [History Last Taken 08/21/22] oxycodone 5 mg tablet 5 - 10 mg PO Q4H PRN PRN Pain Score 4-10 7 days #60 tabs 08/27/22 [Rx Last Taken Unknown] vitamin B complex 1 tab PO DAILY 11/14/22 [History Last Taken Unknown] vitamin B6-vitamin E-magnesium tablet 1 tab PO DAILY 11/14/22 [History Last Taken Unknown] Allergy/AdvReac Type Severity Reaction Status Date / Time No Known Allergies Allergy Verified 08/26/22 11:55 Surgical History History of tonsillectomy and adenoidectomy Hx of cataract extraction Hx of eye surgery Hx of knee surgery Hx of total knee replacement Social History Smoking Status: Never smoker ROS ROS ED Constitutional Constitutional ED: Denies chills or fever(s) Eyes Eyes: Denies change in vision ENT ENT ED: Denies rhinorrhea or sore throat Cardiovascular Cardiovascular: Denies chest pain or palpitations Respiratory/Chest Respiratory/Chest: Denies cough or dyspnea Gastrointestinal Gastrointestinal: Denies abdominal pain, nausea or vomiting Genitourinary Genitourinary ED: Denies dysuria or hematuria Musculoskeletal Musculoskeletal: Reports back pain and extremity pain Integumentary Denies Abrasions or rash Neurologic Neurologic: Denies headache(s) or weakness Allergic/Immunologic Allergic/Immunologic ED: Denies lip swelling or urticaria EXAM Physical Exam Const Vital Signs: 11/14/22 05:29 11/14/22 05:34 Temperature 98.2 F Temperature Source Temporal Pulse Rate 72 Respiratory Rate 18 Respiratory Effort Normal Respiratory Depth Normal Respiratory Pattern Normal Blood Pressure 180/78 H Blood Pressure Mean 112 Pulse Ox 98 Oxygen Delivery Method Room Air Positive well nourished and well developed General Appearance ED: well developed HEENT Reports normocephalic and head/scalp atraumatic Eyes PERRL and EOMs intact bilaterally Neck supple Chest Wall inspection of chest normal and palpation of chest normal Resp normal respiratory effort and clear to auscultation bilaterally Cardio regular rate and regular rhythm GI normal to inspection, nondistended, normoactive bowel sounds Palpation: soft Back/Spine Back/Spine Narrative: Mild pain over the low lumbar paraspinals and over the SI joints. Extremity Extremity Narrative: Mild tenderness palpation to the left shoulder, left elbow, and left wrist. No obvious deformity. Good range of motion at all joints. Mild tenderness palpation over the greater trochanter of the left hip as well as to the posterior left knee. Again good range of motion noted to all joints. Neuro oriented x3 and no sensory deficits noted Sensorium / Orientation: alert Motor Exam: strength 5/5 throughout Psych mental status grossly normal Skin no rashes or lesions noted MDM MDM MDM Narrative Medical decision making narrative: X-rays of the left foot, left knee, left hip and pelvis, left wrist, left elbow, left shoulder are obtained. Per my interpretation I see evidence of an old left clavicle fracture, however no other acute fractures are noted at this time. He does have arthritic changes noted throughout. Hardware in the left knee is intact. Radiology interpretation and all imaging studies is reviewed. Left shoulder x- ray is read as a clavicle fracture. Patient states he has broken his clavicle twice and has malunion. It is not particularly tender at this time and there is no evidence of an acute fracture. Radiology reading confirms mild soft tissue edema over the left extensor elbow. No bony injury. Left wrist x-ray read by radiology as possible radial styloid fracture. Patient is mildly tender to this area, however x-ray looks similar to prior x-ray from May of last year. He will be placed in a Velcro wrist splint. Pelvis and left hip x-ray per radiology reading reveals arthritic changes with overlap. Cannot exclude subtle fracture, especially on the right. Patient has no right hip pain. He is ambulating without difficulty. Left knee x-ray per radiology reading reveals hardware to be intact with mild edema. Left foot x-ray per radiology reading reveals no fracture. Test results are all discussed with the patient and . He will be placed in a Velcro wrist splint. He will continue naproxen at home. He declines anything stronger for pain. Radiography Diagnostic Testing: Clinical Impression(s) from Imaging Studies Elbow X-Ray 11/14/22 05:40 IMPRESSION: Posterior olecranon edema compatible with contusion or bursitis. No acute osseous finding Electronically Signed: Kelvin Verdugo MD at 7:18 EDT , Hip/Pelvis X-Ray 11/14/22 05:40 IMPRESSION: Osseous overlap at the left femoral head neck junction and the right mid femoral neck is nonspecific and may represent sequela of prior injury and overlapping osteophyte formation. Nondisplaced fracture is difficult to exclude, particularly on the right. Consider CT. Electronically Signed: Kelvin Verdugo MD at 7:29 EDT , Knee X-Ray 11/14/22 05:40 IMPRESSION: Nonspecific anterior knee soft tissue edema. Total knee arthroplasty with small joint effusion. No evidence of hardware failure or fracture.. Electronically Signed: Kelvin Verdugo MD at 7:30 EDT , Shoulder X-Ray 11/14/22 05:40 IMPRESSION: Mid clavicle fracture. Electronically Signed: Kelvin Verdugo MD at 7:15 EDT , Wrist X-Ray 11/14/22 05:40 IMPRESSION: Findings concerning for nondisplaced radial styloid fracture.. Diffuse osteoarthritis. Electronically Signed: Kelvin Verdugo MD at 7:23 EDT , Foot X-Ray 11/14/22 05:56 IMPRESSION: No acute osseous finding.. Electronically Signed: Kelvin Verdugo MD at 7:36 EDT , Discharge Plan Triage Chief Complaint: Fall ED Provider: Roxanne Goodson Dx/Rx/DC Orders Clinical Impression: Fall, Contusion of hip, Left wrist sprain Instructions: ED Hip Contusion, ED Wrist Sprain Prescriptions: No Action pantoprazole 40 MG tablet 40 mg PO DAILY Label Comments: decrease stomach acid coenzyme Q10 [Co Q-10] 100 MG capsule 100 mg PO DAILY Label Comments: supplement glucosamine ANt-ftj-hctfzbkeve 1 EACH tablet 1 ea PO DAILY Label Comments: supplement PreserVision AREDS-2 1 EACH capsule 1 ea PO DAILY Label Comments: supplement multivitamin Tablet 1 tab PO DAILY ascorbic acid (vitamin C) [Vitamin C] 500 mg Tablet 500 mg PO DAILY oxycodone 5 mg Tablet 5 - 10 mg PO Q4H PRN PRN (Reason: Pain Score 4-10) 7 Days Qty: 60 0RF vitamin B complex Tablet 1 tab PO DAILY vitamin B6-vitamin E-magnesium Tablet 1 tab PO DAILY Primary Care Provider: Tatum Perry Referrals: Tatum Perry MD [Primary Care Provider] - 1-2 Weeks Disposition Disposition: Home, Self Care
== END 2022-11-14 08:01 | disposition home or self-care (01) ==
PROVIDERS: Emergency Provider Emergency Medicine; PCP Internal Medicine; Visit Provider Emergency Medicine
DX: S70.02XA Contusion of left hip, initial encounter (principal); S63.502A Unspecified sprain of left wrist, initial encounter; W19.XXXA Unspecified fall, initial encounter
CPT/HCPCS: 73030; 73080; 73110; 73502; 73564; 73630; 99283

== ENCOUNTER → 2023-01-15 | Outpatient (CLI) | payer MEDICARE, SELFPAY ==
--- NOTE | 2023-01-15 09:15 | MRI_ITS ---
STUDY: MRI LUMBAR SPINE WITHOUT CONTRAST REASON FOR EXAM: Male, 72 years old. STENOSIS TECHNIQUE: Standardized fat and water weighted pulse sequences were obtained in the sagittal and axial planes. COMPARISON: None FINDINGS: T11- T12: Disc space narrowing. Bilateral paracentral disc protrusions. Facet spurring. Moderate canal stenosis. T12-L1: Normal endplates. Normal disc height, hydration and morphology. Normal bilateral facet joints. Normal central canal and bilateral lateral recesses. Normal bilateral intervertebral neural foramina. Normal lumbar lordosis. There is a dextroscoliosis of the lumbar spine. Normal conus medullaris that terminates at the L1 level. There is increased T2 signal with myelomalacia and/or cystic change in the cord at T11-12. L1-2: Disc space narrowing with endplate change. Mild spurring. Facet spurring. Mild canal stenosis. Right greater than left foraminal narrowing L2-3: Disc space narrowing on the left with endplate change. Disc bulge and spurring asymmetric to the left. Facet spurring. Moderate canal stenosis. Left foraminal narrowing and encroachment. Right foraminal narrowing. L3-4: Disc space narrowing on the left. Disc bulge and spurring. Facet spurring and ligamentum flavum hypertrophy. Moderate canal stenosis. Left foraminal narrowing and encroachment. Mild right foraminal narrowing L4-5: Disc space narrowing on the right. Disc bulge and spurring with a right paracentral disc protrusion. Facet spurring. Moderate canal stenosis. Right foraminal narrowing and encroachment. Mild left foraminal narrowing L5-S1: Disc space narrowing. Disc bulge and spurring with central right paracentral disc protrusion. Facet spurring. No canal stenosis. Bilateral foraminal narrowing and encroachment. Normal visualized sacral ala. Normal visualized paraspinous soft tissue structures. MRI/Spine Lumbar (Routine) IMPRESSION: Scoliosis and degenerative change with disc herniations, canal stenosis, and foraminal narrowing. There is abnormal signal in the cord at T11-12 with myelomalacia and/or cystic change. Electronically Signed: Ruddy Cervantes MD at 18:36 EDT ,
== END | disposition home or self-care (01) ==
LOC: MRI 08:45
PROVIDERS: PCP Internal Medicine; Referring Provider Orthopaedic Surgery; Visit Provider Orthopaedic Surgery
DX: M48.061 Spinal stenosis, lumbar region without neurogenic claudication (principal); M48.07 Spinal stenosis, lumbosacral region; M54.16 Radiculopathy, lumbar region
CPT/HCPCS: 72148

== ENCOUNTER 2024-09-13 06:40 | Emergency (ER) | payer MEDICARE, OTHER, SELFPAY ==
[2024-09-13 06:42] VITALS: BP 142/80; PULSE 63; RESP 18; TEMP 36.9; O2SAT 96; BMI 30.1
--- NOTE | 2024-09-13 06:58 | EKG12_ITS ---
Test Reason : SYNCOPE Blood Pressure : */* mmHG Vent. Rate : 66 BPM Atrial Rate : 66 BPM P-R Int : 166 ms QRS Dur : 82 ms QT Int : 386 ms P-R-T Axes : 64 -2 38 degrees QTcB Int : 404 ms Normal sinus rhythm Normal ECG Confirmed by FABIOLA CHARLES, ERIC ([id number]), deputy editor in chief MELISSA OBRIEN ([id number]) on 09/14/2024 8:45:22 AM Referred By: Confirmed By: ERIC HICKS MD
--- NOTE | 2024-09-13 06:59 | RAD_ITS ---
EXAM: WRIST MIN 3 VIEWS CLINICAL HISTORY: Pain following injury. COMPARISON: Comparison is made with prior study dated November 14, 2022. TECHNIQUE: Three views were obtained. FINDINGS: Marked degree of degenerative changes of the radiocarpal joint as well as degenerative changes of the carpal articulations. Old avulsion fracture of the ulnar styloid. Degenerative changes at the 1st carpometacarpal joint. Dorsal soft tissue swelling. I can not exclude a triquetral fracture. RAD/Wrist min 3 Views IMPRESSION: Degenerative changes as described. Dorsal soft tissue swelling. Can not exclude a fracture of the triquetrum. Reading Location: [id number]
--- NOTE | 2024-09-13 06:59 | RAD_ITS ---
EXAM: SHOULDER MIN 2 VIEWS CLINICAL HISTORY: Right shoulder pain following the fall. COMPARISON: None. TECHNIQUE: Four views were obtained. FINDINGS: Marked degree of joint space narrowing of the glenohumeral joint. Degenerative spur formation along the medial inferior aspect of the humeral head. Calcific tendinitis. RAD/Shoulder min 2 Views IMPRESSION: Degenerative changes. Calcific tendinitis. Reading Location: [facility]
--- NOTE | 2024-09-13 07:17 | EX.ED.DYSGE1 ---
HPI History of Present Illness Chief Complaint: Syncope Detail of Chief Complaint: Syncope and collapse Informant: patient and spouse/S.O. Onset/Context/Timing Onset: Today and Hours Context: Sudden Onset Timing: Intermittent Quality: Straining on commode and passed out Location: At home Current Severity: Gone Maximum Severity: Severe Worsened by: Straining on commode Relieved by: Not applicable Associated Symptoms Associated Symptoms: Pallor, diaphoresis, dilated pupils according to Narrative Narrative: patient is a 74-year-old male. He has no significant past medical history. He denies black or maroon-colored stool. He states he was on the commode attempting to have a bowel movement. He was straining. He became lightheaded. Apparently he fell off the commode. When he attempted to get up off the ground he fell again. He is not on an antithrombotic or anticoagulant. He has a persistent headache for the past several days. Eyes double vision blurred vision loss of vision. No trouble speech or swallowing. He is hard of hearing even with use of hearing aids. He does complain of neck pain which he localizes to the right paracervical/trapezius region. Patient denies cardiac or respiratory symptoms. Patient denies GI symptoms other than the nausea. Patient complains of right shoulder pain. He is right-hand dominant. He also had injury to his left wrist. The left wrist injury occurred Friday when he was chasing a bat. Prior similar symptoms: No Recent Illness/Hospitalization: No [facility] Medical History Wears hearing aid Wears glasses Alcohol use Arthritis Back pain Injury of head and neck Seizures Gastric reflux Non-smoker Shortness of breath on exertion History of pain when walking Normal stress echocardiogram Prostate cancer Home Medications ?Medication ?Instructions ?Recorded ?Last Taken ?Type coenzyme Q10 100 mg capsule (Co 100 mg PO DAILY 12/01/14 08/21/22 History Q-10) glucosamine HCl 500 mg-msm 83 1 ea PO DAILY 12/01/14 08/21/22 History mg-chondroitin 400 mg tablet pantoprazole 40 mg tablet,delayed 40 mg PO DAILY 12/01/14 08/26/22 History release vit C 250 mg-vit E 90 mg-zinc 40 1 ea PO DAILY 12/01/14 08/21/22 History mg-copper 1 [id number] capsule (PreserVision AREDS-2) ascorbic acid (vitamin C) 500 mg 500 mg PO DAILY 08/02/22 08/21/22 History tablet (Vitamin C) multivitamin 1 tab PO DAILY 08/02/22 08/21/22 History naproxen 500 mg tablet 500 mg PO DAILY 09/13/24 Unknown History pyridoxine (vitamin B6) 10 mg 10 mg PO DAILY 09/13/24 Unknown History tablet thiamine HCl (vitamin B1) 100 mg 100 mg PO DAILY 09/13/24 Unknown History tablet (Vitamin B-1) Allergy/AdvReac Type Severity Reaction Status Date / Time No Known Allergies Allergy Verified 09/13/24 06:41 Surgical History Hx of cataract extraction Hx of knee surgery History of tonsillectomy and adenoidectomy Hx of eye surgery Hx of total knee replacement Social History (Updated 09/13/24 @ 07:[address] Kyle Cid MD) household members: spouse Smoking Status: Never smoker ROS ROS ED Constitutional Constitutional ED: Denies chills, fever(s) or subjective Eyes Eyes: Reports change in vision bilateral; Denies blurry vision or diplopia ENT ENT ED: Denies ear pain, rhinorrhea or sore throat Cardiovascular Cardiovascular: Denies chest pain, orthopnea or palpitations Respiratory/Chest Respiratory/Chest: Denies cough, dyspnea, dyspnea on exertion or orthopnea Gastrointestinal Gastrointestinal: Reports nausea; Denies abdominal pain, constipation, diarrhea, melena or vomiting Genitourinary Genitourinary ED: Denies dysuria, hematuria or urinary frequency Musculoskeletal Musculoskeletal: Reports neck pain; Denies arthralgias, back pain or myalgias Integumentary Denies abscess, Abrasions or rash Neurologic Neurologic: Reports headache(s); Denies paresthesias or weakness Hematologic/Lymphatic Hematologic/Lymphatic: Reports systems reviewed and no addt'l complaints, except as documented EXAM Physical Exam Const Vital Signs: 09/13/24 06:42 09/13/24 06:47 Temperature 98.4 F Temperature Source Oral Pulse Rate 63 Respiratory Rate 18 Respiratory Effort Normal Non-Labored Respiratory Pattern Normal Blood Pressure 142/80 H Blood Pressure Mean 100 Pulse Ox 96 Oxygen Delivery Method Room Air Vital signs are remarkable slight elevation of blood pressure. Positive well nourished and well developed General Appearance ED: well developed and NAD; Negative for cyanotic, diaphoretic or pallor HEENT Reports moist mucous membranes HEENT Narrative: Head is atraumatic no cephalic. Ears normal. Patient has hearing aids in. Nares patent. No septal deviation hematoma. No dental trauma. Eyes PERRL and EOMs intact bilaterally General Eye ED: Negative for pale conjunctiva or scleral icterus Neck no lymphadenopathy, supple and no JVD Neck Narrative: There is no midline posterior neck pain. There is pain over the right trapezius and right AC joint area. There is no point tenderness over the AC joint. Chest Wall inspection of chest normal and palpation of chest normal Resp normal respiratory effort and clear to auscultation bilaterally Cardio regular rate, regular rhythm, S1 normal heart sound, S2 normal heart sound and no murmurs GI normal to inspection, nondistended, normoactive bowel sounds, non-tender, non-distended and no masses; Negative for hepatosplenomegaly Extremity Negative for normal to inspection Extremity Narrative: There is a hematoma dorsal surface of the left wrist. Median, radial and ulnar function intact. There is no pain ovation of the lateral medial epicondyle, olecranon process or radial head. There is no pain ovation over the metacarpal bones or phalanges of the left hand. Examination of the right elbow reveals tenderness over the bicipital groove region. Patient has essentially full active range of motion. Axillary, median, radial and ulnar function intact. There is no pain ovation of the elbow or wrist. Neuro oriented x3, CN's II-XII intact bilaterally and no sensory deficits noted Sensorium / Orientation: alert Motor Exam: strength 5/5 throughout Psych mental status grossly normal Skin no rashes or lesions noted, no wounds and skin turgor normal General Skin Exam: Negative for jaundice or pallor MDM MDM MDM Narrative Medical decision making narrative: History is consistent with a vasovagal syncopal sewed. Since patient has no evidence of head trauma GCS of 15 with a normal neurologic exam imaging of the head was not obtained. Patient does not have midline posterior neck pain either. He does have pain over the right trapezius and right shoulder area consistent with muscular pain. Therefore x-ray of the C-spine was not obtained. Patient does have a hematoma dorsal surface of the left wrist. X-ray was obtained to evaluate for fracture and specifically avulsion fracture of the triquetrum. X-ray of the shoulder was obtained as well to assess for fracture of the proximal humerus doubt injury to the clavicle or AC joint. EKG was obtained to evaluate for any cardiac ischemia. Suspect patient had a vasovagal. History & Record Review Additional record(s) reviewed:: Prior outpatient record (Records from outside facility August 2022 for left knee arthroplasty and October 2020 for immunization records.) and Prior ED visit (November 2022 for hip contusion, May 2022 for concussion) Radiography Chest X-Ray - ED: Read by ED Physician (Three-view x-ray of the wrist was obtained and reviewed interpreted by me at 0715 as negative for acute process. Patient has significant degenerative arthritic changes. There is no evidence of a volar fat pad. There is no fracture, subluxation dislocation noted.) CTA PE Study: - (4 view x-ray of the right shoulder reveals degenerative changes. There is calcification of the supraspinatus tendon. There is significant arthritic changes of the humeral glenoid joint. There is no evidence of fracture, subluxation or dislocation. AC joint appears normal. This also was independ) Diagnostic Testing: Clinical Impression(s) from Imaging Studies Shoulder X-Ray 09/13/24 06:59 IMPRESSION: Degenerative changes. Calcific tendinitis. Reading Location: [facility] Wrist X-Ray 09/13/24 06:59 IMPRESSION: Degenerative changes as described. Dorsal soft tissue swelling. Can not exclude a fracture of the triquetrum. Reading Location: [facility] EKG Initial EKG: Attestation: I personally reviewed and interpreted this EKG as follows: Interpretation: Sinus Rhythm (Rate is 66 and EKG is normal. NH interval is under 6 6 ms. Cures duration 82 ms. QT T duration 386 ms. [place] is normal.) Treatment and Re-Evaluation :: and patient were informed of results. Plan is to discharge to home. Discharge Plan Triage Chief Complaint: Syncope ED Provider: Kyle Cid Dx/Rx/DC Orders Clinical Impression: Vasovagal syncope, Contusion of left wrist, initial encounter, Contusion of right shoulder, initial encounter, Injury due to fall, Calcific tendinitis of right shoulder Instructions: ED Fainting, Vagal Reaction, ED Tendonitis Prescriptions: No Action pantoprazole 40 MG tablet 40 mg PO DAILY Patient Comments: decrease stomach acid coenzyme Q10 [Co Q-10] 100 MG capsule 100 mg PO DAILY Patient Comments: supplement glucosamine [id number] 1 EACH tablet 1 ea PO DAILY Patient Comments: supplement PreserVision AREDS-2 1 EACH capsule 1 ea PO DAILY Patient Comments: supplement multivitamin Tablet 1 tab PO DAILY ascorbic acid (vitamin C) [Vitamin C] 500 mg Tablet 500 mg PO DAILY naproxen 500 mg tablet 500 mg PO DAILY Patient Comments: [NO ORIGINAL SIG] thiamine HCl (vitamin B1) [Vitamin B-1] 100 mg tablet 100 mg PO DAILY pyridoxine (vitamin B6) 10 mg tablet 10 mg PO DAILY Primary Care Provider: Tatum Perry Referrals: Tatum Perry MD [Primary Care Provider] - As Needed Print Language: Yakut Disposition Disposition: Home, Self Care
[2024-09-13 07:44] VITALS: BP 111/72; PULSE 71; RESP 18; TEMP 36.8; O2SAT 97
== END 2024-09-13 07:52 | disposition home or self-care (01) ==
PROVIDERS: Emergency Provider Emergency Medicine; PCP Internal Medicine; Visit Provider Emergency Medicine
DX: R55 Syncope and collapse (principal); S40.011A Contusion of right shoulder, initial encounter; M75.31 Calcific tendinitis of right shoulder; S60.212A Contusion of left wrist, initial encounter; K21.9 Gastro-esophageal reflux disease without esophagitis; R51.9 Headache, unspecified; W18.11XA Fall from or off toilet without subsequent striking against object, initial encounter
CPT/HCPCS: 73030; 73110; 93005; 99285